=== PATIENT | male | born 1960 | race Caucasian/White ===

== ENCOUNTER 2017-05-13 09:11 | Emergency (ER) | payer OTHER ==
[2017-05-13 09:18] VITALS: BP 112/82; PULSE 51; RESP 18; TEMP 97.9; O2SAT 98
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
== END 2017-05-13 11:16 | disposition home or self-care (01) ==
DX: S16.1XXA Strain of muscle, fascia and tendon at neck level, initial encounter (principal); V18.0XXA Pedal cycle driver injured in noncollision transport accident in nontraffic accident, initial encounter; Y92.410 Unspecified street and highway as the place of occurrence of the external cause; Y99.8 Other external cause status; Y93.55 Activity, bike riding